=== PATIENT | female | born 1950 | race Caucasian/White ===

== ENCOUNTER 2017-05-29 07:02 | Day surgery (SDC) | payer MEDICARE, BC ==
[2017-05-29] MEDS ORDERED: Sodium Chloride 0.9% 1,000 ML IV SCH (07:30)
[2017-05-29] MEDS ORDERED: fentaNYL 100 MCG/2 ML SDV ONE (08:36)
[2017-05-29] MEDS ORDERED: Midazolam 1 MG/ML 2 ML SDV ONE (08:37)
[2017-05-29] MEDS ORDERED: Propofol 200 MG/20 ML SDV ONE ×2 (08:37→09:02)
[2017-05-29 10:58] VITALS: BP 91/53
--- NOTE | 2017-05-29 12:42 | PROC ---
DATE OF PROCEDURE: 05/29/2017 INDICATION: Arnel is a 67-year-old female who comes in for a [employer] colonoscopy. The risks and benefits were explained to the patient, and she was taken to OR. PROCEDURE IN DETAIL: Anesthesia was given by the nurse arc trimmer. During the procedure, we used 100 mcg of fentanyl, 2 mg of Versed, and 170 mg of propofol. The Olympus 180AL scope was used. With gloved finger, the rectum was examined, and the tube was placed into the rectum and advanced under direct vision. It was a very difficult colon, and finally we used external pressure, then later on her back, and finally got to the cecum. Upon retraction of the tube, noted no lesions, ulceration, no abnormality. The tube was removed. The patient tolerated the procedure well. PREOPERATIVE DIAGNOSIS: Screening colonoscopy for Welcome [employer] physical. POSTOPERATIVE DIAGNOSIS: Normal colon from cecum to rectum. Abraham Azevedo MD /[id number]
== END 2017-05-29 10:40 | disposition home or self-care (01) ==
LOC: JP.SDS 07:02
PROVIDERS: ATTEND Internal Medicine
DX: Z12.11 Encounter for screening for malignant neoplasm of colon (principal); E11.9 Type 2 diabetes mellitus without complications; Z88.8 Allergy status to other drugs, medicaments and biological substances; Z90.710 Acquired absence of both cervix and uterus; Z98.890 Other specified postprocedural states
CPT/HCPCS: G0121; J2250; J2704; J3010; J7040

== ENCOUNTER 2020-10-18 07:27 | Day surgery (SDC) | payer MEDICARE, BC ==
[~2020-10-18 07:27] MED LIST: Bupivacaine 0.5% 30 ML SDV ONE; Midazolam 1 MG/ML 2 ML SDV ONE; Propofol 200 MG/20 ML SDV ONE; fentaNYL 100 MCG/2 ML SDV ONE
[2020-10-18] MEDS ORDERED: Nozin Nasal Sanitizer NASBOTH ONE (07:30)
[2020-10-18] MEDS ORDERED: Lactated Ringers 1,000 ML IV SCH (08:00)
[2020-10-18] MEDS ORDERED: ceFAZolin 2 GM in Premix Bag 1 BAG IV ONE (08:00)
[2020-10-18] MEDS ORDERED: Propofol 200 MG/20 ML SDV ONE (09:27)
[2020-10-18 11:21] VITALS: BP 116/71; PULSE 69
--- NOTE | 2020-11-01 23:39 | OR ---
DATE OF PROCEDURE: 10/18/2020 SURGEON: Abraham Akhtar MD PREOPERATIVE DIAGNOSES: Impingement right shoulder, partial-thickness, possible full- thickness rotator cuff tear. POSTOPERATIVE DIAGNOSES: 1. Impingement right shoulder. 2. Partial-thickness tear rotator cuff, supraspinatus. 3. Subacromial bursitis. 4. Synovitis glenohumeral joint. 5. Partial tear of subscapularis tendon. 6. Adhesions of biceps tendon. PROCEDURE: Arthroscopy right shoulder with limited synovectomy, debridement of partial subscapularis tear and supraspinatus tear, subacromial decompression with acromioplasty, biceps tenotomy. TELEHEALTH NURSE EDUCATOR: GERTRUDE Guerra. ANESTHESIA: Interscalene block with sedation. INDICATIONS: Arnel is a 70-year-old female with a history of persistent and progressive right shoulder pain. She has tried conservative treatment with persistent symptoms. Examination and MRI are consistent with impingement and rotator cuff tendinopathy with what appears to be partial-thickness tear and a possible small full-thickness tear of the tendon. She now presents for arthroscopic evaluation of the joint, decompression acromioplasty, and repair of rotator cuff as necessary. Risks, benefits, potential complications of the procedure were discussed. DESCRIPTION OF PROCEDURE: After adequate anesthesia was obtained, patient was placed in lateral decubitus position and secured with a arcos bag positioner. Right shoulder and arm were prepped and draped in a sterile fashion. Ten pounds of traction was placed through the traction unit and a posterior portal was established. Glenohumeral joint was inspected. This revealed some mild fraying of the anterior labrum. The humeral head and glenoid were essentially intact with no significant degenerative change. The subscapularis showed partial-thickness tear, but at least 60% to 75% of the tendon still intact. Looking at the superior labrum and biceps anchor, biceps tendon was visualized, but was completely adherent to the capsule. The tendon could not be or mobilized from the overlying capsule. Working through the anterior portal, the shaver was used to lightly debride degenerative portion of the labrum. Subscapularis was also lightly debrided and further evaluated and found to be primarily intact and no attempt was made at repair. Again, attempt at mobilizing the biceps was done and the biceps could not be from the capsule anywhere along its intra-articular portion. Undersurface of the rotator cuff was evaluated. This showed some fraying without full-thickness tear. The area of primary damage was marked with a PDS suture through a spinal needle. The scope was withdrawn and placed in the subacromial space. A fairly significant bursitis was present within the subacromial space. This was cleared using combination of the Serfas ablation wand and shaver. The bursal surface of the rotator cuff was evaluated and it showed some mild fraying without evidence of full-thickness tear. The marked position with the PDS suture was identified and well visualized. This was also palpated. Did show some thinning consistent with a partial tear noted on the articular side, but the majority of the tendon was actually intact. Soft tissues were cleared from the underside of the acromion. Coracoacromial ligament was released along the anterior edge and a cristy was utilized to perform an acromioplasty removing approximately 4 mm and bevelling this medially and posteriorly. The camera was switched from the posterior portal to the lateral portal, further evaluating the rotator cuff and maneuvering the arm in internal and external rotation, abduction, and no full- thickness tear was identified. The scope was moved back into the joint and attempt was again made to mobilize the biceps tendon. This could not be from the capsule and the Serfas ablation wand was used to tenotomize the tendon at its insertion onto the superior labrum releasing a portion of the capsule to allow some motion of the biceps tendon. The scope was withdrawn. Shoulder was drained. Port sites were closed in a standard fashion and a sterile dressing was applied. The patient tolerated the procedure well. There were no complications. She was taken from the operating room in stable condition. Abraham Akhtar MD /[id number] [facility]
== END 2020-10-18 11:50 | disposition home or self-care (01) ==
LOC: JP.SDS 07:27
PROVIDERS: ATTEND Specialist
DX: M75.111 Incomplete rotator cuff tear or rupture of right shoulder, not specified as traumatic (principal); M25.811 Other specified joint disorders, right shoulder; M75.51 Bursitis of right shoulder; M65.811 Other synovitis and tenosynovitis, right shoulder; M75.01 Adhesive capsulitis of right shoulder; E11.9 Type 2 diabetes mellitus without complications; F32.9 Major depressive disorder, single episode, unspecified; Z98.890 Other specified postprocedural states
CPT/HCPCS: 29822; 29826; A9270; C1713; J0690; J2250; J2704; J3010; J3490; J7120

== ENCOUNTER 2022-02-27 06:35 | Day surgery (SDC) | payer MEDICARE, BC ==
[2022-02-27] MEDS ORDERED: Midazolam 1 MG/ML 2 ML SDV ONE (06:55)
[2022-02-27] MEDS ORDERED: fentaNYL 100 MCG/2 ML SDV ONE (06:55)
[2022-02-27] MEDS ORDERED: Propofol 200 MG/20 ML SDV ONE ×2 (06:55→07:40)
[2022-02-27] MEDS: Lactated Ringers 1,000 ML IV SCH (06:57)
[2022-02-27] MEDS ORDERED: Sodium Chloride 0.9% 1,000 ML IV SCH (07:00)
[2022-02-27 08:51] VITALS: BP 106/60; PULSE 66
== END 2022-02-27 09:00 | disposition home or self-care (01) ==
LOC: JP.SDS 06:35
PROVIDERS: ATTEND Internal Medicine
DX: K62.5 Hemorrhage of anus and rectum (principal); K64.9 Unspecified hemorrhoids; E11.9 Type 2 diabetes mellitus without complications; F32.A Depression, unspecified; Z88.8 Allergy status to other drugs, medicaments and biological substances
CPT/HCPCS: 45378; J2250; J2704; J3010; J7120

== ENCOUNTER 2023-07-07 07:04 | Day surgery (SDC) | payer MEDICARE, BC ==
[~2023-07-07 07:04] MED LIST changes: -Midazolam 1 MG/ML 2 ML SDV ONE; -Propofol 200 MG/20 ML SDV ONE; -fentaNYL 100 MCG/2 ML SDV ONE
[2023-07-07] MEDS ORDERED: Nozin Nasal Sanitizer NASBOTH ONE (07:38)
[2023-07-07 08:00] LABS: HEMATOCRIT 38.1 % (34.3-46.0); HEMOGLOBIN 12.6 g/dL (11.2-15.5); MEAN CORPUSCULAR HEMOGLOBIN 30.3 pg (31.6-35.5); MEAN CORPUSCULAR HGB CONC 33.1 g/dL (31.6-35.5); MEAN CORPUSCULAR VOLUME 91.6 fL (81.4-99.0); RED BLOOD CELL COUNT 4.16 M/uL (3.77-5.24); WHITE BLOOD CELL COUNT,WBC 3.9 K/uL (3.2-11.0)
[2023-07-07 08:13] LABS: ANION GAP 6.4 mmol/L (5.0-14.0); CALCIUM 8.6 mg/dL (8.5-10.1); CREATININE 0.8 mg/dL (0.6-1.0); EST CRCL DRUG DOSING (CG) 65.06 mL/min; POTASSIUM,K 4.3 mmol/L (3.6-5.2)
[2023-07-07] MEDS ORDERED: Lactated Ringers 1,000 ML IV SCH (08:30)
[2023-07-07] MEDS ORDERED: fentaNYL 100 MCG/2 ML SDV ONE (08:50)
[2023-07-07] MEDS ORDERED: Midazolam 1 MG/ML 2 ML SDV ONE (08:50)
[2023-07-07] MEDS ORDERED: Propofol 200 MG/20 ML SDV ONE (08:50)
[2023-07-07] MEDS ORDERED: Betamethasone Acetate/Betamethasone Sod Phosphate 6 MG/1 ML MDV IARTIC ONE ×3 (10:00)
[2023-07-07] MEDS ORDERED: Bupivacaine 0.5% 10 ML SDV INJECT ONE ×3 (10:00)
[2023-07-07] MEDS ORDERED: traMADol 50 MG Tab PO PRN (10:08)
[2023-07-07 10:42] VITALS: PULSE 64
[2023-07-07 10:43] VITALS: BP 126/59
[2023-07-08] MEDS ORDERED: Lactated Ringers 1,000 ML IV SCH (06:30)
== END 2023-07-07 10:44 | disposition home or self-care (01) ==
LOC: JP.SDS 07:04
PROVIDERS: ATTEND Specialist
DX: M65.312 Trigger thumb, left thumb (principal); M65.311 Trigger thumb, right thumb; M65.331 Trigger finger, right middle finger; M65.332 Trigger finger, left middle finger
CPT/HCPCS: 26055; 36415; 80048; 85027; A9270; J0702; J2250; J2704; J3010; J3490; J7120

== ENCOUNTER 2025-02-12 07:54 | Emergency (ER) | payer MEDICARE, BC ==
[2025-02-12 08:42] VITALS: BP 131/71; PULSE 97
== END 2025-02-12 09:06 | disposition home or self-care (01) ==
LOC: JP.ED 07:54
DX: A69.20 Lyme disease, unspecified (principal); Z88.8 Allergy status to other drugs, medicaments and biological substances; Z79.84 Long term (current) use of oral hypoglycemic drugs; Z79.899 Other long term (current) drug therapy
CPT/HCPCS: 99283